=== PATIENT | female | born 1995 | race Two or more races ===

== ENCOUNTER 2017-10-12 10:58 | Emergency (ER) | payer MEDICAID ==
[~2017-10-12] VITALS: Ht 165.1 cm; Wt 72.6 kg
[2017-10-12 11:07] VITALS: BP 117/78
== END 2017-10-12 12:00 | disposition home or self-care (01) ==
LOC: ER 11:01
DX: S16.1XXA Strain of muscle, fascia and tendon at neck level, initial encounter (principal); X58.XXXA Exposure to other specified factors, initial encounter; Y93.89 Activity, other specified; Y92.89 Other specified places as the place of occurrence of the external cause; Y99.8 Other external cause status
CPT/HCPCS: 99282; A4606; Z7610